=== PATIENT | female | born 1965 | race African-American/Black ===

== ENCOUNTER 2019-02-21 22:34 | Emergency (ER) | payer OTHER, MEDICAID ==
[~2019-02-21] VITALS: Ht 167.6 cm; Wt 89.0 kg
[2019-02-22] MEDS ORDERED: IBUPROFEN 600MG TABLET PO ONE (00:30)
[2019-02-22 00:56] LABS: BASOPHILS % 0.6 % (0.0-2.0); EOSINOPHILS % 3.3 % (0.0-5.0); HEMATOCRIT. 36.2 % (36.0-48.0); HEMOGLOBIN. 12.5 g/dL (12.0-16.0); MEAN CORPUSCULAR HEMOGLOBIN 33.2 pg (28.0-32.0); MEAN CORPUSCULAR VOLUME 95.8 fL (81.0-99.0); MEAN PLATELET VOLUME 7.9 fl (7.4-10.4); MONOCYTES % 7.5 % (2.0-8.0); NEUTROPHILS % 48.6 % (40.0-76.0); PLATELET 276 x1000/uL (130-400); RED BLOOD CELL COUNT 3.78 mill/uL (4.2-5.4); RED CELL DISTRIBUTION WIDTH 14.6 % (11.6-14.6)
[2019-02-22 01:00] LABS: CHLORIDE 109 mEq/L (98-107)
[2019-02-22 01:43] VITALS: BP 128/74
== END 2019-02-22 01:41 | disposition home or self-care (01) ==
LOC: ER 22:34
DX: R60.0 Localized edema (principal); F17.210 Nicotine dependence, cigarettes, uncomplicated; Z71.6 Tobacco abuse counseling; F12.90 Cannabis use, unspecified, uncomplicated
CPT/HCPCS: 36415; 71045; 83880; 93005; 99284; 99406

== ENCOUNTER 2019-03-03 10:14 | Emergency (ER) | payer OTHER, MEDICAID ==
[~2019-03-03] VITALS: Ht 167.6 cm; Wt 87.0 kg
[2019-03-03 11:55] VITALS: BP 124/81
== END 2019-03-03 12:05 | disposition home or self-care (01) ==
LOC: ER 10:14
DX: L84 Corns and callosities (principal); Z76.0 Encounter for issue of repeat prescription; M32.9 Systemic lupus erythematosus, unspecified; M06.9 Rheumatoid arthritis, unspecified
CPT/HCPCS: 99283

== ENCOUNTER 2019-04-08 22:55 | Emergency (ER) | payer MEDICARE, MEDICAID ==
[~2019-04-08] VITALS: Ht 167.6 cm; Wt 89.0 kg
[2019-04-08 23:05] VITALS: BP 124/71
== END 2019-04-09 00:04 | disposition left against medical advice (07) ==
LOC: ER 22:55
DX: Z53.21 Procedure and treatment not carried out due to patient leaving prior to being seen by health care provider (principal)

== ENCOUNTER 2019-04-29 10:50 | Emergency (ER) | payer MEDICARE, OTHER ==
[~2019-04-29] VITALS: Ht 167.6 cm; Wt 90.9 kg
[2019-04-29 11:21] VITALS: BP 139/71
== END 2019-04-29 11:54 | disposition home or self-care (01) ==
LOC: ER 10:50
DX: L29.9 Pruritus, unspecified (principal); Z86.19 Personal history of other infectious and parasitic diseases
CPT/HCPCS: 99282

== ENCOUNTER 2019-05-02 04:35 | Emergency (ER) | payer MEDICARE, MEDICAID ==
[~2019-05-02] VITALS: Ht 165.1 cm; Wt 78.0 kg
[2019-05-02 04:58] VITALS: BP 171/73
== END 2019-05-02 05:41 | disposition left against medical advice (07) ==
LOC: ER 04:35
DX: Z53.21 Procedure and treatment not carried out due to patient leaving prior to being seen by health care provider (principal)

== ENCOUNTER 2022-11-08 09:00 | Emergency (ER) | payer OTHER ==
[~2022-11-08] VITALS: Ht 172.7 cm; Wt 90.0 kg
[2022-11-08 09:27] VITALS: BP 199/92
[2022-11-08] MEDS ORDERED: ACETAMINOPHEN 325MG TABLET PO ONE (18:15)
[2022-11-08] MEDS ORDERED: AMLODIPINE 5MG TABLET PO ONE (18:15)
== END 2022-11-08 19:33 | disposition left against medical advice (07) ==
LOC: ER 09:00
DX: I10 Essential (primary) hypertension (principal)
CPT/HCPCS: 99281